=== PATIENT | female | born 1955 | race Caucasian/White ===

== ENCOUNTER → 2023-09-10 09:21 | Outpatient (REF) | payer MEDICARE, SELFPAY ==
[2023-09-10 12:49] LABS: HDL Cholesterol 45 mg/dl; LDL Cholesterol, Calculated 86 mg/dl; Total Cholesterol 148 mg/dl (50-199); Triglyceride 89 mg/dl (10-149); Very Low Density Lipoprotein 17 mg/dl (0-30)
== END ==
LOC: REG 09:21
PROVIDERS: ATTENDING PHYSICIAN Internal Medicine Cardiovascular Disease; FAMILY PHYSICIAN Emergency Medicine
DX: E78.5 Hyperlipidemia, unspecified (principal)
CPT/HCPCS: 36415; 80061

== ENCOUNTER → 2023-09-27 11:24 | Outpatient (REF) | payer MEDICARE, SELFPAY | LOC: DHCBC/DCA 11:24 | PROVIDERS: ATTENDING PHYSICIAN Internal Medicine Cardiovascular Disease; FAMILY PHYSICIAN Emergency Medicine | DX: I48.0 Paroxysmal atrial fibrillation (principal) | CPT/HCPCS: 78452; 93017; A9500; J2785 ==

== ENCOUNTER → 2023-10-05 09:10 | Outpatient (REF) | payer MEDICARE, SELFPAY | LOC: RCS 09:10 | PROVIDERS: ATTENDING PHYSICIAN Internal Medicine Cardiovascular Disease; FAMILY PHYSICIAN Emergency Medicine | DX: R06.09 Other forms of dyspnea (principal) | CPT/HCPCS: 93306 ==

== ENCOUNTER → 2023-12-30 14:57 | Outpatient (REF) | payer MEDICARE, SELFPAY | LOC: DHSLP 14:57 | PROVIDERS: ATTENDING PHYSICIAN Internal Medicine Cardiovascular Disease; FAMILY PHYSICIAN Emergency Medicine | DX: G47.33 Obstructive sleep apnea (adult) (pediatric) (principal) | CPT/HCPCS: 95810 ==

== ENCOUNTER → 2024-01-04 09:13 | Outpatient (REF) | payer MEDICARE, SELFPAY | LOC: RAD 09:13 | PROVIDERS: ATTENDING PHYSICIAN Physician Assistant; FAMILY PHYSICIAN Emergency Medicine | DX: E04.2 Nontoxic multinodular goiter (principal) | CPT/HCPCS: 76536 ==

== ENCOUNTER 2024-01-19 14:19 | Emergency (ER) | payer MEDICARE, SELFPAY ==
[2024-01-19 14:23] VITALS: BP 197/82
--- NOTE | 2024-01-19 14:25 | ED.GENMED ---
ED Provider Triage
<Gael Blake PA-C - Last Filed: 01/19/24 14:26>
-
Patient seen by provider in Triage?: Seen in Triage
68-year-old female presents for evaluation of head injury. She is on Xarelto. She tripped and fell and landed on the left side of her head. No neck pain. She also notes left upper arm and forearm pain. No loss of conscious. No preceding chest
pain or lightheadedness.
Vital signs are stable through triage. Will order CT of head x-ray of left humerus and left forearm.
Patient received medical screening examination by healthcare provider through triage. Further evaluation is necessary
History of Present Illness
<Gael Blake PA-C - Last Filed: 01/19/24 14:26>
General
Chief Complaint: Head Injury
Time Seen by Provider: 01/19/24 15:53
<Lo Dickerson NP - Last Filed: 01/19/24 21:04>
General
Source: patient
Exam Limitations: none
Nursing documentation reviewed up to this point in time: agreed with
History of Present Illness
History of Present Illness:
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
apartment building today stumbled on the pavement fell onto her left side, hit the left side of her forehead on the pavement and injured her left arm. She denies loss of consciousness. She denies headache, change in vision, neck pain. Other than
her left arm hurting she denies any other injury.
Past History
<Gael Blake PA-C - Last Filed: 01/19/24 14:26>
Past History
ED Past Medical History: Arrthythmia, CAD, HTN and Hypercholesterolemia
ED Past Surgical History: Cardiac
Social History
Tobacco: Non-smoker
<Lo Dickerson, COMB MACHINE OPERATOR - Last Filed: 01/19/24 21:04>
Past History
ED Past Surgical History: Cardiac (Ablation x 2) and Orthopedic
Social History
Alcohol: None
Personal: Single
Living: alone
Review of Systems
<Lo Dickerson, COMB MACHINE OPERATOR - Last Filed: 01/19/24 21:04>
Review of Systems
Allergies reviewed?: Yes
All Other Systems: ROS reviewed and negative except as documented in HPI and ROS
Constitutional: Denies fever or fatigue
Respiratory: Denies trouble breathing
Cardiac: Denies chest pain or syncope
ABD/GI: Denies abdominal pain, nausea or vomiting
: Denies dysuria or difficulty voiding
Musculoskeletal: Reports other (Pain left elbow and forearm); Denies neck pain or back pain
Skin: Reports other (Small scrape left forehead)
Neurological: Reports other (chronic left sided weakness, nothing new since fall); Denies headache
Phy Exam
<Lo Dickerson, COMB MACHINE OPERATOR - Last Filed: 01/19/24 21:04>
Physical Exam
Physical Exam:
GENERAL: No acute distress. A&Ox3.
CONSTITUTIONAL: Afebrile.
EYES: PERRL, conjunctivae normal
Neck: Supple
ENMT: moist mucus membranes, Pharynx nl
RESPIRATORY: Regular respirations, nonlabored, lungs clear.
CARDIOVASCULAR: Regular rate and rhythm, no murmurs, no rubs.
GI: Soft, nontender, normal BS
MUSCULOSKELETAL: Moves with ease. Well perfused.
SKIN: Warm, dry, pink
PSYCH: Normal mood and affect. Well kept, interactive and appropriate
NEUROLOGIC: Awake, alert and oriented. Speech clear. Ambulates well with steady gait. No focal neurological deficits
Course
<Gael Blake PA-C - Last Filed: 01/19/24 14:26>
Orders/Labs/Results
Orders:
Orders
01/19/24 14:22
CT Head W/o Iv Contrast Urgent
Comment:
Reason For Exam: fall
CR Forearm - Left 2 View Urgent
Comment:
Reason For Exam: fall
CR Humerus - Left Min 2 Views* Urgent
Comment:
Reason For Exam: fall
01/19/24 16:36
Long Arm Left-Treatment ONCE
Sling Left-Treatment ONCE
Oxycodone/Acetaminophen [Percocet 5/325] 1 tablet PO NOW STA
01/19/24 16:48
Tetanus/Diphth/Acelpertussis [Adacel] 0.5 ml IM .ONCE ONE
Vital Signs
Initial and Last Documented VS:
Initial Vital Signs
Temp Pulse Resp BP Pulse Ox
98.1 F 66 18 197/82 97
01/19/24 14:23 01/19/24 14:23 01/19/24 14:23 01/19/24 14:23 01/19/24 14:23
Last Documented Vital Signs
Temp Pulse Resp BP Pulse Ox
98.1 F 69 20 185/102 96
01/19/24 14:23 01/19/24 17:30 01/19/24 17:30 01/19/24 17:30 01/19/24 17:30
<Lo Dickerson COMB MACHINE OPERATOR - Last Filed: 01/19/24 21:04>
Orders/Labs/Results
Orders:
Orders
01/19/24 14:22
CT Head W/o Iv Contrast Urgent
Comment:
Reason For Exam: fall
CR Forearm - Left 2 View Urgent
Comment:
Reason For Exam: fall
CR Humerus - Left Min 2 Views* Urgent
Comment:
Reason For Exam: fall
01/19/24 16:36
Long Arm Left-Treatment ONCE
Sling Left-Treatment ONCE
Oxycodone/Acetaminophen [Percocet 5/325] 1 tablet PO NOW STA
01/19/24 16:48
Tetanus/Diphth/Acelpertussis [Adacel] 0.5 ml IM .ONCE ONE
Vital Signs
Initial and Last Documented VS:
Initial Vital Signs
Temp Pulse Resp BP Pulse Ox
98.1 F 66 18 197/82 97
01/19/24 14:23 01/19/24 14:23 01/19/24 14:23 01/19/24 14:23 01/19/24 14:23
Last Documented Vital Signs
Temp Pulse Resp BP Pulse Ox
98.1 F 69 20 185/102 96
01/19/24 14:23 01/19/24 17:30 01/19/24 17:30 01/19/24 17:30 01/19/24 17:30
Procedures
<Lo Dickerson COMB MACHINE OPERATOR - Last Filed: 01/19/24 21:04>
Splinting/Sling Placement
Left Arm:
Procedure completed by: Mona Dickerson NP
Pre-splint extermity exam: good alignment
Type of splint: posterior long arm
Splint material: fiberglass
Type of sling: sling fitted
Normal distal neurovascular exam?: Yes
<Lo Dickerson COMB MACHINE OPERATOR - Last Filed: 01/19/24 21:04>
MDM/Problems Addressed
Differential Diagnosis Includes:
Fracture versus soft tissue injury left upper extremity
Contusion forehead, concussion, brain bleed
MDM/Problems Addressed:
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
apartment building today stumbled on the pavement fell onto her left side, hit the left side of her forehead on the pavement and injured her left arm. She denies loss of consciousness. She denies headache, change in vision, neck pain. Other than
her left arm hurting she denies any other injury.
NAD, no new neuro deficits
Head CT neg
Xray left forearm read by this examiner: radial head fracture.
No sign of concussion
Pt ambulating with her rolator as usual
Tdap updated
<Lo Dickerson COMB MACHINE OPERATOR - Last Filed: 01/19/24 21:04>
*Critical Care Note
Total Time (30-74mins, 75-104mins- exclusive of procedures): Not Applicable
ED Attending Note
<Gael Blake PA-C - Last Filed: 01/19/24 14:26>
-
Portions of this chart may have been created with voice recognition software.� Occasional wrong word or��sound alike� substitutions may have occurred due to the inherent limitations of voice recognition software.
Discharge Plan
Departure
Patient Disposition: Home (Routine Discharge)
Date of Disposition: 01/19/24
Time of Disposition: 16:52
Patient with high blood pressure during this ER visit?: Yes
Condition: Good
Discharge Problem:
Fall from slip, trip, or stumble, Forehead contusion, Closed fracture of head of left radius
Instructions: Head Injury in Adults (DC), Contusion (DC), Using Cold for Pain, Elbow Fracture, Adult ED, BLOOD PRESSURE
Prescriptions:
New
hydrocodone-acetaminophen 5-300 mg tablet
1 tab PO Q8H PRN (Reason: Pain) Qty: 7 0RF
No Action
multivitamin 1 EACH tablet
1 ea PO DAILY
losartan 50 MG tablet
50 mg PO DAILY
metoprolol succinate 50 MG tablet extended release 24 hr
100 mg PO BID
cyanocobalamin (vitamin B-12) 1,000 MCG tablet
1,500 mcg PO DAILY
Xarelto 20 MG tablet
20 mg PO QPM
melatonin 5 MG tablet
5 mg PO HS PRN (Reason: sleep)
cholecalciferol (vitamin D3) 25 mcg (1,000 unit) Tablet
25 mcg PO DAILY
dofetilide [Tikosyn] 500 mcg capsule
500 mcg PO Q12H Qty: 60 11RF
Referrals:
Nerissa Pedroza MD [Family Provider] -
Benitez Barahona MD [Active] - Call in 1-3 days for appt
Activity Restrictions/Additional Instructions:
As we discussed, keep the splint on and wear the sling when up and around till further instructed by the orthopedic doctor.
Call the orthopedic doctors office tomorrow make next available point, you have a 'fracture of the radial head.'
Tylenol 1000 mg up to 3 times a day as needed for pain.
Return here immediately for vomiting more than once in one hour, confusion, headache that gets worse and worse despite taking Tylenol.
Interventions
Interventions:
*Risk Screen - Suicide Last Done: 01/19/24 14:23
*General Assessment Last Done: 01/19/24 14:23
*Neglect/Abuse Screening Last Done: 01/19/24 14:23
*ED COVID-19 Vaccine History Last Done: 01/19/24 16:27
*Nursing Disposition Last Done: 01/19/24 18:05
ED-Musculoskeletal Assessment Last Done: 01/19/24 16:27
ED- Neurological Assessment Last Done: 01/19/24 16:27
ED-Skin Assessment Last Done: 01/19/24 16:27
Discharge Date and Time
Discharge Date/Time: 01/19/24 18:57
Print Language: [id number]
[2024-01-19] MEDS: PERCOCET 5/325 1 TABLET PO (16:48)
[2024-01-19] MEDS: ADACEL 0.5 ML IM (17:18)
[2024-01-19 17:30] VITALS: BP 185/102
== END 2024-01-19 18:57 | disposition home or self-care (01) ==
LOC: EMR 14:19
PROVIDERS: EMERGENCY PHYSICIAN Emergency Medicine; FAMILY PHYSICIAN Emergency Medicine
DX: S52.122A Displaced fracture of head of left radius, initial encounter for closed fracture (principal); S00.83XA Contusion of other part of head, initial encounter; W01.0XXA Fall on same level from slipping, tripping and stumbling without subsequent striking against object, initial encounter; E03.9 Hypothyroidism, unspecified; E78.00 Pure hypercholesterolemia, unspecified; I10 Essential (primary) hypertension; I48.91 Unspecified atrial fibrillation; I25.10 Atherosclerotic heart disease of native coronary artery without angina pectoris; Z79.01 Long term (current) use of anticoagulants; Z23 Encounter for immunization
CPT/HCPCS: 29105; 90471; 99284; 70450; 73060; 73090; 90715

== ENCOUNTER → 2024-02-02 12:31 | Outpatient (REF) | payer MEDICARE, SELFPAY ==
[2024-02-02 12:47] VITALS: BP 148/87; BP_SYST 61
== END ==
LOC: RADI 12:31
PROVIDERS: ATTENDING PHYSICIAN Physician Assistant; FAMILY PHYSICIAN Emergency Medicine
DX: E04.1 Nontoxic single thyroid nodule (principal)
CPT/HCPCS: 88173; 10005

== ENCOUNTER → 2024-02-07 09:06 | Outpatient (REF) | payer MEDICARE, SELFPAY ==
[2024-02-07 09:58] LABS: Urine Albumin Negative (Neg - Trace); Urine Bilirubin Negative (Negative); Urine Character Clear (Clear); Urine Color Yellow; Urine Glucose Negative (Negative); Urine Ketone Negative (Negative); Urine Leukocyte Trace (Negative); Urine Nitrite Negative (Negative); Urine Occult Blood Negative (Negative); Urine Urobilinogen Negative (Neg - 1+)
[2024-02-07 09:59] LABS: % Basophils 0.7 % (0-2); % Eosinophils 3.1 % (0-6); % Immature Granulocytes 0.3 % (0-0.5); % Lymphocytes 27.8 % (20.5-51.1); % Monocytes 9.1 % (1.7-9.3); Absolute Basophils 0.1 10^3/uL (0-0.2); Absolute Eosinophils 0.2 10^3/uL (0-0.7); Absolute Lymphocytes 1.9 10^3/uL (1.2-3.4); Absolute Monocytes 0.6 10^3/uL (0.1-0.6); Hematocrit 43.2 % (37.0-47.0); Hemoglobin 13.9 g/dL (12.0-16.0); Mean Corp Hgb Conc. 32.2 g/dL (33.0-37.0); Mean Corpuscular Volume 87.1 fL (81.0-99.0); Mean Platelet Volume 12.5 fL (7.4-10.4); Nucleated Red Blood Cells % 0 %; Platelet Count 181 10^3/uL (130-400); Red Blood Cell Count 4.96 10^6/uL (4.20-5.40); Red Cell Dist. Width 13.3 % (11.5-14.5); White Blood Cell Count 6.8 10^3/uL (4.8-10.8)
[2024-02-07 10:19] LABS: Urine Bacteria Moderate (Negative); Urine Red Blood Cell 0-2 /HPF (0-2); Urine Squamous Cell >30 /LPF (Few); Urine White Cell 0-2 /HPF (0-5)
[2024-02-07 10:23] LABS: ALT (SGPT) 12 U/L (0-35); AST (SGOT) 16 U/L (14-36); Albumin 4.2 g/dl (3.5-5.0); Alkaline Phosphatase 88 U/L (38-126); Blood Urea Nitrogen 18 mg/dl (7-17); Calcium 9.2 mg/dl (8.4-10.2); Carbon Dioxide 29 mmol/L (22-30); Chloride 101 mmol/L (98-107); Glucose 94 mg/dl (70-99); HDL Cholesterol 48 mg/dl; LDL Cholesterol, Calculated 73 mg/dl; Potassium 4.3 mmol/L (3.5-5.1); Sodium 138 mmol/L (135-145); Total Bilirubin 0.6 mg/dl (0.2-1.3); Total Cholesterol 136 mg/dl (50-199); Total Protein 7.2 g/dl (6.3-8.2); Triglyceride 77 mg/dl (10-149); Very Low Density Lipoprotein 15 mg/dl (0-30); eGFR > 60.00
[2024-02-07 10:57] LABS: TSH Reflex To Free T4 3.55 uIU/ml (0.47-4.68)
[2024-02-07 11:09] LABS: Glycohemoglobin (HgbA1c) 5.5 % (4.0-5.6)
== END ==
LOC: REG 09:06
PROVIDERS: ATTENDING PHYSICIAN Internal Medicine Cardiovascular Disease; FAMILY PHYSICIAN Emergency Medicine
DX: I48.0 Paroxysmal atrial fibrillation (principal); I70.0 Atherosclerosis of aorta; I25.10 Atherosclerotic heart disease of native coronary artery without angina pectoris; E04.1 Nontoxic single thyroid nodule; E66.9 Obesity, unspecified; Z79.899 Other long term (current) drug therapy; R73.9 Hyperglycemia, unspecified; E78.00 Pure hypercholesterolemia, unspecified
CPT/HCPCS: 36415; 80053; 80061; 81003; 81015; 83036; 84443; 85025

== ENCOUNTER → 2024-02-15 09:10 | Outpatient (REF) | payer MEDICARE, SELFPAY ==
[2024-02-15 10:35] LABS: Blood Urea Nitrogen 19 mg/dl (7-17); Calcium 9.4 mg/dl (8.4-10.2); Carbon Dioxide 24 mmol/L (22-30); Chloride 105 mmol/L (98-107); Glucose 103 mg/dl (70-99); Potassium 4.2 mmol/L (3.5-5.1); Sodium 139 mmol/L (135-145); eGFR > 60.00
== END ==
LOC: REG 09:10
PROVIDERS: ATTENDING PHYSICIAN Internal Medicine Cardiovascular Disease; FAMILY PHYSICIAN Emergency Medicine
DX: I48.0 Paroxysmal atrial fibrillation (principal); I25.10 Atherosclerotic heart disease of native coronary artery without angina pectoris; I10 Essential (primary) hypertension
CPT/HCPCS: 36415; 80048; 83735

== ENCOUNTER → 2024-06-09 09:03 | Outpatient (REF) | payer MEDICARE, SELFPAY ==
[2024-06-09 10:33] LABS: Blood Urea Nitrogen 16 mg/dl (7-17); Calcium 9.5 mg/dl (8.4-10.2); Carbon Dioxide 25 mmol/L (22-30); Chloride 105 mmol/L (98-107); Glucose 106 mg/dl (70-99); Potassium 4.6 mmol/L (3.5-5.1); Sodium 141 mmol/L (135-145); eGFR > 60.00
== END ==
LOC: REG 09:03
PROVIDERS: ATTENDING PHYSICIAN Emergency Medicine
DX: I10 Essential (primary) hypertension (principal)
CPT/HCPCS: 36415; 80048

== ENCOUNTER → 2024-06-14 09:01 | Outpatient (REF) | payer MEDICARE, SELFPAY | LOC: RAD 09:01 | PROVIDERS: ATTENDING PHYSICIAN Emergency Medicine; REFERRING PHYSICIAN Internal Medicine | DX: R91.1 Solitary pulmonary nodule (principal) | CPT/HCPCS: 71260; Q9967 ==

== ENCOUNTER → 2024-07-12 16:30 | Outpatient (REF) | payer MEDICARE, SELFPAY | LOC: WDC 16:30 | PROVIDERS: ATTENDING PHYSICIAN Emergency Medicine | DX: Z12.31 Encounter for screening mammogram for malignant neoplasm of breast (principal) | CPT/HCPCS: 77063; 77067 ==